=== PATIENT | female | born 2000 | race African-American/Black ===

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

== ENCOUNTER 2022-05-02 17:49 | Emergency (ER) | payer MEDICAID, OTHER | END 2022-05-02 18:10 | disposition home or self-care (01) | LOC: ERS 17:49 | DX: L60.0 Ingrowing nail (principal) | CPT/HCPCS: 99283 ==

== ENCOUNTER 2022-07-28 13:15 | Emergency (ER) | payer OTHER | END 2022-07-28 13:53 | disposition home or self-care (01) | LOC: ERS 13:15 | DX: S40.012A Contusion of left shoulder, initial encounter (principal); V89.2XXA Person injured in unspecified motor-vehicle accident, traffic, initial encounter; I10 Essential (primary) hypertension | CPT/HCPCS: 99283 ==

== ENCOUNTER 2022-10-24 19:42 | Emergency (ER) | payer OTHER | END 2022-10-24 20:54 | disposition home or self-care (01) | LOC: ERS 19:42 | DX: M79.645 Pain in left finger(s) (principal) | CPT/HCPCS: 99282 ==

== ENCOUNTER 2022-12-09 16:51 | Emergency (ER) | payer OTHER | END 2022-12-09 18:33 | disposition left against medical advice (07) | LOC: ERS 16:51 | DX: Z53.21 Procedure and treatment not carried out due to patient leaving prior to being seen by health care provider (principal) ==

== ENCOUNTER 2022-12-23 13:40 | Emergency (ER) | payer OTHER | END 2022-12-23 15:23 | disposition home or self-care (01) | LOC: ERS 13:40 | DX: K64.8 Other hemorrhoids (principal); J45.909 Unspecified asthma, uncomplicated; I10 Essential (primary) hypertension; Z79.899 Other long term (current) drug therapy | CPT/HCPCS: 99283 ==

== ENCOUNTER 2024-02-15 17:50 | Emergency (ER) | payer OTHER ==
[2024-02-15] MEDS ORDERED: Ketorolac Tromethamine 30 MG (1 mL) VIAL ONE (20:42)
== END 2024-02-15 20:45 | disposition home or self-care (01) ==
LOC: ERS 17:50
DX: M62.838 Other muscle spasm (principal); I10 Essential (primary) hypertension; J45.909 Unspecified asthma, uncomplicated; V89.2XXA Person injured in unspecified motor-vehicle accident, traffic, initial encounter
CPT/HCPCS: 96372; 99283; J1885

== ENCOUNTER 2024-02-18 19:24 | Emergency (ER) | payer OTHER ==
[2024-02-19] MEDS ORDERED: Acetaminophen 500 MG TAB ONE (07:34)
== END 2024-02-19 07:45 | disposition home or self-care (01) ==
LOC: ERS 19:24
DX: Z53.21 Procedure and treatment not carried out due to patient leaving prior to being seen by health care provider (principal)

== ENCOUNTER 2024-02-22 04:20 | Emergency (ER) | payer OTHER ==
[2024-02-22] MEDS ORDERED: Dexamethasone 4 mg/ml Vial ONE (05:00)
[2024-02-22] MEDS ORDERED: Acetaminophen 500 MG TAB ONE (05:02)
== END 2024-02-22 06:00 | disposition home or self-care (01) ==
LOC: ERS 04:20
DX: J02.9 Acute pharyngitis, unspecified (principal); I10 Essential (primary) hypertension; J45.909 Unspecified asthma, uncomplicated; Z79.899 Other long term (current) drug therapy
CPT/HCPCS: 87081; 87430; 99283; J1100

== ENCOUNTER 2024-05-21 20:17 | Emergency (ER) | payer OTHER | END 2024-05-21 20:56 | disposition home or self-care (01) | LOC: ERS 20:17 | DX: N61.0 Mastitis without abscess (principal); I10 Essential (primary) hypertension | CPT/HCPCS: 99282 ==

== ENCOUNTER 2024-05-28 21:32 | Emergency (ER) | payer OTHER | END 2024-05-28 23:24 | disposition home or self-care (01) | LOC: ERS 21:32 | DX: M54.6 Pain in thoracic spine (principal); M79.642 Pain in left hand; I10 Essential (primary) hypertension; V89.2XXA Person injured in unspecified motor-vehicle accident, traffic, initial encounter | CPT/HCPCS: 72072; 99284 ==

== ENCOUNTER 2024-06-17 05:12 | Emergency (ER) | payer OTHER ==
[2024-06-17 05:37] LABS: Bacteria/HPF None Seen HPF (None Seen); Bilirubin Negative (Negative); Blood, Urine Trace (Negative); CAUTI Indications for Culture Pelvic or flank pain; Clarity Clear (Clear); Glucose, Urine (Dipstick) Normal (Negative); Ketone, Urine Negative (Negative); Leukocyte 25 Leu/uL (Negative); Nitrite Negative (Negative); Protein, Urine (Dipstick) 30 mg/dL (Neg-Trace); Specific Gravity, Urine 1.026 (1.002-1.036)
[2024-06-17 05:38] LABS: Urine Culture Reflex No No
[2024-06-17] MEDS ORDERED: cefTRIAXone (ROCEPHIN) 500 MG VIAL ONE (06:06)
[2024-06-17] MEDS ORDERED: Lidocaine 1% MPF 2 ML VIAL ONE (06:07)
[2024-06-17 23:02] LABS: Chlamydia by PCR, Vaginal Swab Not Detected (NotDetected); GC by PCR, Vaginal Swab Not Detected (NotDetected)
== END 2024-06-17 06:17 | disposition home or self-care (01) ==
LOC: ERS 05:12
DX: Z20.2 Contact with and (suspected) exposure to infections with a predominantly sexual mode of transmission (principal); I10 Essential (primary) hypertension; Z55.0 Illiteracy and low-level literacy
CPT/HCPCS: 81001; 87480; 87491; 87510; 87591; 87660; 96372; 99283; J0696

== ENCOUNTER 2024-08-18 15:42 | Emergency (ER) | payer OTHER ==
[2024-08-18] MEDS ORDERED: Ketorolac Tromethamine 30 MG (1 mL) VIAL ONE (17:36)
== END 2024-08-18 19:01 | disposition home or self-care (01) ==
LOC: ERS 15:42
DX: S93.601A Unspecified sprain of right foot, initial encounter (principal); I10 Essential (primary) hypertension; W19.XXXA Unspecified fall, initial encounter
CPT/HCPCS: 96372; 99283; J1885

== ENCOUNTER 2024-08-29 11:25 | Emergency (ER) | payer OTHER ==
[2024-08-29] MEDS ORDERED: Famotidine 20 MG TAB ONE ×2 (11:38→11:39)
[2024-08-29] MEDS ORDERED: diphenhydrAMINE 25 MG CAP ONE (11:38)
[2024-08-29] MEDS ORDERED: predniSONE 20 MG TAB ONE (11:38)
== END 2024-08-29 14:34 | disposition home or self-care (01) ==
LOC: ERS 11:25
DX: L50.9 Urticaria, unspecified (principal); I10 Essential (primary) hypertension
CPT/HCPCS: 99282; J7512

== ENCOUNTER 2025-05-09 04:58 | Emergency (ER) | payer MEDICAID ==
[2025-05-09] MEDS ORDERED: Ketorolac Tromethamine 30 MG (1 mL) VIAL ONE (06:15)
[2025-05-09] MEDS ORDERED: Benzonatate 100 MG CAP ONE (06:17)
== END 2025-05-09 06:46 | disposition home or self-care (01) ==
LOC: ERS 04:58
DX: R05.9 Cough, unspecified (principal); I10 Essential (primary) hypertension
CPT/HCPCS: 87428; 96372; 99283; J1885